=== PATIENT | male | born 1970 | race Two or more races ===

== ENCOUNTER 2020-02-19 09:28 | Observation (INO) | payer BC ==
[2020-02-19] MEDS ORDERED: SODIUM CHLORIDE 0.9% 500 ML INFUS.BAG IV ONE ×2 (09:44→11:05)
[2020-02-19] MEDS ORDERED: ACETAMINOPHEN 1000 MG/100 ML VIAL (NON FORMULARY) IVPB ONE (10:04)
[2020-02-19] MEDS ORDERED: ACETAMINOPHEN INJECTION 100 ML IVPB ONE (10:20)
[2020-02-19 10:55] LABS: BASO % 0.6 % (0-2.0); EOS % 0.1 % (0-4.5); HEMATOCRIT 38.4 % (35.4-49); HEMOGLOBIN 12.9 GM/dL (11.7-16.9); MCH 28.6 pg (25.7-33.7); MCHC 33.5 g/dl (32.0-35.9); MEAN CELL VOLUME 85.3 fl (80-96); MEAN PLT VOLUME 9.1 fl (7.5-11.1); MONO % 11.3 % (3.8-10.2); PLATELET COUNT 252 K/MM3 (134-434); RDW 12.9 % (11.9-15.9); WHITE BLOOD COUNT 4.9 K/mm3 (4.0-10.0)
[2020-02-19 11:01] LABS: INR 1.13 (0.83-1.09); PROTHROMBIN TIME (PATIENT) 13.8 SEC (9.7-13.0)
[2020-02-19 11:03] LABS: ACTIVATED PTT 29.2 SECONDS (25.2-36.5)
[2020-02-19 11:18] LABS: CHLORIDE 104 mmol/L (98-107); POTASSIUM 3.7 mmol/L (3.5-5.1); SODIUM 140 mmol/L (136-145)
[2020-02-19 11:21] LABS: ALBUMIN 3.5 g/dl (3.4-5.0); ANION GAP 8 MMOL/L (8-16); BLOOD UREA NITROGEN 25.7 mg/dL (7-18); CALCIUM 8.3 mg/dL (8.5-10.1); CO2 27 mmol/L (21-32); GLUCOSE,RANDOM 116 mg/dL (74-106)
[2020-02-19 11:24] LABS: CREATININE 2.2 mg/dL (0.55-1.3)
[2020-02-19 11:25] LABS: SGOT/AST 30 U/L (15-37); SGPT/ALT 32 U/L (13-61)
[2020-02-19 11:26] LABS: BILIRUBIN,TOTAL 0.4 mg/dL (0.2-1); LDH 163 U/L (87-246); TOT PROT 7.6 g/dl (6.4-8.2)
[2020-02-19 11:27] LABS: ALK PHOS 49 U/L (45-117)
[2020-02-19] MEDS ORDERED: ACETAMINOPHEN 325 MG TABLET (FP) PO PRN (13:15)
[2020-02-19] MEDS ORDERED: HEPARIN NA (PORCINE) 5,000 UNITS/ML 1ML VIAL ONE (14:55)
[2020-02-19] MEDS: HEPARIN NA (PORCINE) 5,000 UNITS/ML 1ML VIAL SQ SCH ×2 (15:29→21:41)
[2020-02-19 19:39] LABS: URINE APPEARANCE CLEAR; URINE BILIRUBIN NEGATIVE (NEGATIVE); URINE COLOR YELLOW; URINE GLUCOSE (UA) NEGATIVE (NEGATIVE); URINE KETONE NEGATIVE (NEGATIVE); URINE LEUK ESTERASE NEGATIVE (NEGATIVE); URINE NITRITE NEGATIVE (NEGATIVE); URINE PROTEIN NEGATIVE (NEGATIVE); URINE UROBILINOGEN 0.2 mg/dL (0.2-1.0)
[2020-02-19 20:32] LABS: EPI CELLS 27.3 /uL (0-25.1); HYALINE CASTS 8.09 /uL (0-3.1); URINE BACTERIA 53.5 /uL (0-1359); URINE RBC 15.6 /uL (0-23.9); URINE WBC 25.5 /uL (0-25.8)
[2020-02-19 21:03] LABS: OPIATES, URI NEGATIVE ng/ml (CUTOFF=300)
[2020-02-19 21:04] LABS: COCAINE, UR NEGATIVE ng/ml (CUTOFF=300); PHENCYCLIDINE,URINE NEGATIVE ng/ml (CUTOFF=25); URINE BARBITURATES NEGATIVE ng/ml (CUTOFF=200)
[2020-02-19 21:10] LABS: METHADONE, UR NEGATIVE ng/ml (CUTOFF=300); URINE AMPHETAMINES NEGATIVE ng/ml (CUTOFF=500); URINE BENZODIAZEPINES NEGATIVE ng/ml (CUTOFF=200)
[2020-02-19] MEDS ORDERED: ATORVASTATIN CA 40 MG TABLET (FP) PO SCH (22:00)
[2020-02-19 23:22] LABS: BLOOD UREA NITROGEN 24.8 mg/dL (7-18)
[2020-02-19 23:25] LABS: CREATININE 1.6 mg/dL (0.55-1.3)
[2020-02-20 00:18] VITALS: BMI 32.1
[2020-02-20] MEDS: HEPARIN NA (PORCINE) 5,000 UNITS/ML 1ML VIAL SQ SCH ×2 (05:55→13:58)
[2020-02-20 07:17] LABS: BASO % 0.6 % (0-2.0); HEMATOCRIT 38.3 % (35.4-49); HEMOGLOBIN 12.8 GM/dL (11.7-16.9); LYMPH % 34.5 % (8-40); MCHC 33.4 g/dl (32.0-35.9); MEAN PLT VOLUME 8.8 fl (7.5-11.1); MONO % 15.9 % (3.8-10.2); PLATELET COUNT 218 K/MM3 (134-434); RBC 4.56 M/mm3 (4.00-5.60); RDW 12.8 % (11.9-15.9); WHITE BLOOD COUNT 3.1 K/mm3 (4.0-10.0)
[2020-02-20 07:34] LABS: POTASSIUM 3.9 mmol/L (3.5-5.1)
[2020-02-20 07:37] LABS: BLOOD UREA NITROGEN 20.2 mg/dL (7-18); CALCIUM 8.1 mg/dL (8.5-10.1); MAGNESIUM 2.1 mg/dL (1.8-2.4)
[2020-02-20 07:40] LABS: ALBUMIN 3.4 g/dl (3.4-5.0); CREATININE 1.3 mg/dL (0.55-1.3); PHOSPHOROUS 3.5 mg/dL (2.5-4.9)
[2020-02-20 07:42] LABS: BILIRUBIN,TOTAL 0.4 mg/dL (0.2-1); TOT PROT 7.5 g/dl (6.4-8.2)
[2020-02-20] MEDS ORDERED: PT OWN MED DRAWER 7, Y5N ONE ×2 (10:39→12:27)
[2020-02-20 18:47] VITALS: BP 135/80; PULSE 77; TEMP 98.7
== END 2020-02-20 19:27 | disposition home or self-care (01) ==
LOC: JER 09:28 → JERBED 09:45 → UNDOADMOB 13:06 → INTOOBSV 13:06 → J4S 21:42 → JERBED 21:42
PROC: 3E0234Z Introduction of Serum, Toxoid and Vaccine into Muscle, Percutaneous Approach (ICD-10-PCS; principal; 2020-02-19)
PROC: 3E023GC Introduction of Other Therapeutic Substance into Muscle, Percutaneous Approach (ICD-10-PCS; 2020-02-19)
PROC: 3E033NZ Introduction of Analgesics, Hypnotics, Sedatives into Peripheral Vein, Percutaneous Approach (ICD-10-PCS; 2020-02-19)
PROC: 3E0337Z Introduction of Electrolytic and Water Balance Substance into Peripheral Vein, Percutaneous Approach (ICD-10-PCS; 2020-02-19)
DX: N17.9 Acute kidney failure, unspecified (principal); U07.1 COVID-19; I95.9 Hypotension, unspecified; R55 Syncope and collapse; A41.9 Sepsis, unspecified organism; I11.0 Hypertensive heart disease with heart failure; G89.29 Other chronic pain; Z98.84 Bariatric surgery status; I25.10 Atherosclerotic heart disease of native coronary artery without angina pectoris; R00.1 Bradycardia, unspecified; G47.33 Obstructive sleep apnea (adult) (pediatric); E66.9 Obesity, unspecified; Z68.32 Body mass index [BMI] 32.0-32.9, adult; Z29.9 Encounter for prophylactic measures, unspecified
CPT/HCPCS: 36415; 71045-TC-FY; 80048; 80053; 80307; 81003; 82436; 82550; 82565; 82728; 83605; 83615; 83735; 83880; 84100; 84133; 84300; 84484; 84520; 84540; 85025; 85379; 85610; 85730; 86140; 87040; 87086; 93005; 93010; 93880-TC; 99285-25; C9803; G0378; J0131; J1644; U0003